=== PATIENT | female | born 1985 | race Caucasian/White ===

== ENCOUNTER 2020-03-28 18:54 | Emergency (ER) | payer OTHER ==
[~2020-03-28] VITALS: Ht 160 cm; Wt 61.4 kg
[2020-03-28 18:58] VITALS: TEMP 98.3
[2020-03-28] MEDS ORDERED: ONE-A-DAY ESSE1 EACH PO (19:12)
[2020-03-28 19:42] VITALS: BP 123/72; PULSE 70
== END 2020-03-28 19:42 | disposition home or self-care (01) ==
LOC: COL.ER 18:54
DX: M72.2 Plantar fascial fibromatosis (principal); X50.9XXA Other and unspecified overexertion or strenuous movements or postures, initial encounter; Y92.410 Unspecified street and highway as the place of occurrence of the external cause; Y93.02 Activity, running

== ENCOUNTER 2021-01-10 20:44 | Emergency (ER) | payer OTHER ==
[~2021-01-10] VITALS: Ht 160 cm; Wt 61.4 kg
[~2021-01-10 20:44] MED LIST: ONE-A-DAY ESSE1 EACH PO
[2021-01-10] MEDS ORDERED: AMOXICILLIN 8751 TAB PO (21:39)
[2021-01-10 21:46] VITALS: BP 118/63; PULSE 84; TEMP 98.2
== END 2021-01-10 21:46 | disposition home or self-care (01) ==
LOC: COL.ER 20:44
DX: S61.452A Open bite of left hand, initial encounter (principal); W54.0XXA Bitten by dog, initial encounter